=== PATIENT | female | born 1950 ===

== ENCOUNTER 2018-11-12 11:45 | Inpatient (IN) | payer OTHER ==
[~2018-11-12] VITALS: Ht 160 cm; Wt 98.0 kg
== END 2018-11-20 12:22 | disposition home or self-care (01) | DRG 470 ==
LOC: ADM 11:45 → EDSTATUS 11:45 → SURH 11-17 07:00 → O/R 11-17 08:52 → SURG 11-17 08:52 → SURH 11-17 11:45 → SURG 11-17 16:46
PROVIDERS: ADMIT Orthopaedic Surgery
PROC: 0T9B70Z Drainage of Bladder with Drainage Device, Via Natural or Artificial Opening (ICD-10-PCS; 2018-11-17)
PROC: 0SRD0J9 Replacement of Left Knee Joint with Synthetic Substitute, Cemented, Open Approach (ICD-10-PCS; principal; 2018-11-17 07:00)
DX: M17.12 Unilateral primary osteoarthritis, left knee (principal); G57.42 Lesion of medial popliteal nerve, left lower limb; E11.9 Type 2 diabetes mellitus without complications; Z79.4 Long term (current) use of insulin; E03.9 Hypothyroidism, unspecified